=== PATIENT | female | born 1950 | race American Indian/Alaskan Native ===

== ENCOUNTER 2021-01-28 16:36 | Observation (INO) | payer MEDICARE ==
[2021-01-28] MEDS ORDERED: diazePAM 10 MG/2 ML SYRINGE IV ONE (17:40)
--- NOTE | 2021-01-28 17:56 | Emergency Department Report ---
HPI - General Chief Complaint: Pain General Time Seen by Provider: 01/28/21 17:10 - HPI HPI: 70-year-old female with history of dementia and recent percutaneous cholecystostomy tube placement is brought in by EMS complaining of severe right- sided neck pain for the past 4 days. She describes the pain as sharp and intermittent in nature. When the pain occurs it is a severe spasm of the muscles of the right side of her neck. Other than this pain she has had no other associated symptoms she denies headache, vision change, chest pain, shortness of breath abdominal pain, nausea/vomiting, focal weakness, sensory changes, or any other complaints ED Past Medical Hx - Past Medical History Previous Medical History?: Yes Additional medical history: Dementia - Surgical History Additional Surgical History: indwelling PERC ADRIENNE - Social History Smoking Status: Unknown if ever smoked ED Review of Systems ROS: Stated complaint: BODY PAIN Other details as noted in HPI Constitutional: denies: chills, fever Eyes: denies: eye pain, vision change ENT: denies: throat pain, congestion Respiratory: denies: cough, shortness of breath Cardiovascular: denies: chest pain, palpitations Gastrointestinal: denies: abdominal pain, nausea, vomiting Genitourinary: denies: dysuria, frequency Musculoskeletal: denies: back pain, myalgia Skin: denies: rash, lesions Neurological: denies: headache, weakness, numbness Hematological/Lymphatic: denies: easy bleeding Physical Exam - Physical Exam Vital Signs: Vital Signs 01/28/21 01/28/21 16:43 17:15 Temperature 97.3 F L Pulse Rate 89 Respiratory 16 Rate Blood Pressure 169/88 [Left] O2 Sat by Pulse 97 98 Oximetry Physical Exam: GENERAL: Well developed and well nourished. In mild distress secondary to pain HEAD: Normocephalic. No obvious signs of trauma. ENT: Moist mucous membranes. EYES: Extraocular movements are intact. Pupils are equal round and reactive to light bilaterally NECK: Supple. Full ROM is intact. Trachea is midline. There are palpable spasms of the right paraspinous muscles of the cervical spine and neck region without midline tenderness. LUNGS: Nonlabored breathing. Equal chest rise bilaterally. Clear to auscultation bilaterally. CARDIOVASCULAR: Regular rate and rhythm. No murmurs or rubs. VASCULAR: Cap refill < 2 seconds ABDOMEN: Abdomen is soft and nondistended. There is an indwelling PERC Mavis tube draining faint yellow-colored fluid. There is no significant tenderness, guarding or rebound. SKIN: Skin is warm and dry NEURO: Patient is awake and alert. restaurant bartender II-XII grossly intact. No focal deficits. Normal motor and sensory exam throughout. Normal speech. MUSCULOSKELETAL: No obvious deformities. No significant tenderness. Normal ROM throughout. BACK/SPINE: No midline tenderness or step-offs of the C/T/L spine. No costovertebral angle tenderness. ED Course Vital Signs 01/28/21 01/28/21 16:43 17:15 Temperature 97.3 F L Pulse Rate 89 Respiratory 16 Rate Blood Pressure 169/88 [Left] O2 Sat by Pulse 97 98 Oximetry ED Medical Decision Making - Lab Data Result diagrams: 01/29/21 03:59 01/29/21 03:59 Labs 01/28/21 01/28/21 18:00 18:00 WBC 7.1 RBC 4.09 Hgb 12.3 Hct 38.3 MCV 94 MCH 30 MCHC 32 RDW 15.7 H Plt Count 253 Lymph % (Auto) 13.4 Love % (Auto) 10.0 H Eos % (Auto) 0.4 Baso % (Auto) 2.8 H Lymph # (Auto) 0.9 L Love # (Auto) 0.7 Eos # (Auto) 0.0 Baso # (Auto) 0.2 H Seg Neutrophils % 73.4 H Seg Neutrophils # 5.2 Sodium 140 Potassium 3.6 Chloride 100.3 Carbon Dioxide 28 Anion Gap 15 BUN 15 Creatinine 0.8 Estimated GFR > 60 BUN/Creatinine Ratio 19 Glucose 143 H Calcium 9.7 Magnesium 1.80 Total Bilirubin 0.30 Direct Bilirubin < 0.2 Indirect Bilirubin 0.1 AST 18 ALT 11 Alkaline Phosphatase 125 Total Protein 8.8 H Albumin 4.7 Albumin/Globulin Ratio 1.1 Lipase 11 L - EKG Data -: EKG Interpreted by Me - Medical Decision Making 70-year-old female with history of dementia and indwelling PERC Adrienne tube presents complaining of 4 days of neck pain. She is afebrile and with normal vital signs other than elevated blood pressure. The patient is in mild distress secondary to pain. She has visible and palpable spasming of the paraspinous muscles of the cervical region and neck. She has no midline tenderness. She has a nonfocal neurologic exam. Given the patient's age, we will perform broad work-up with full set of labs and CT of the cervical spine to assess for evidence of fracture, dislocation, or other abnormalities to explain the p atient's symptoms. We will give 0.5 mg of Valium and reassess. On reassessment, patient remains with excruciating pain. We will give an additional 1 mg of Valium and reassess again. Patient again remains with severe pain, saying that spasming is only minimally improved. We will give dose of morphine and reassess. After morphine, the patient is more somnolent but still says she has significant pain, although it is less than before. Labs have resulted and reveal no significant leukocytosis or anemia. Creatinine is within normal range and there are no significant electrolyte abnormalities. CT of the neck reveals multilevel degenerative changes with foraminal stenoses but no acute abnormalities. Given that the patient lives alone and has intractable pain despite multiple doses of IV muscle relaxants and pain relievers, will plan to admit the patient to medicine for further management. I spoke with Dr. Persaud the on-call hospitalist regarding the case accepts the patient for admission and will assume care. Critical care attestation.: If time is entered above; I have spent that time in minutes in the direct care of this critically ill patient, excluding procedure time. ED Disposition Clinical Impression: Intractable pain, Neck muscle spasm Disposition: ADMITTED INPATIENT Is pt being admited?: Yes
[2021-01-28 18:22] LABS: Basophils # (Auto) 0.2 K/mm3 (0.0-0.1); Basophils % (Auto) 2.8 % (0.0-1.8); Eosinophils % (Auto) 0.4 % (0.0-4.3); Hematocrit 38.3 % (30.3-42.9); Hemoglobin 12.3 gm/dl (10.1-14.3); Lymphocytes # (Auto) 0.9 K/mm3 (1.2-5.4); Lymphocytes % (Auto) 13.4 % (13.4-35.0); Mean Corpuscular HGB Conc 32 % (30-34); Mean Corpuscular Volume 94 fl (79-97); Monocytes # (Auto) 0.7 K/mm3 (0.0-0.8); Platelet Count 253 K/mm3 (140-440); Red Blood Count 4.09 M/mm3 (3.65-5.03); Red Cell Distribution Width 15.7 % (13.2-15.2)
[2021-01-28 18:45] LABS: Alanine Aminotransferase 11 units/L (7-56); Albumin 4.7 g/dL (3.9-5); BUN/Creatinine Ratio 19; Blood Urea Nitrogen 15 mg/dL (7-17); Calcium 9.7 mg/dL (8.4-10.2); Hemolysis Index 4
[2021-01-28 18:46] LABS: Bilirubin,Direct < 0.2 mg/dL (0-0.2)
--- NOTE | 2021-01-28 19:34 | Cat Scan Report ---
Exam: CT cervical spine History: neck pain w/ spasm; Technique: Contiguous thin cut axial images obtained through the cervical spine. Sagittal and hodges l reconstructions performed by the technologist. All CT scans at this location are performed using CT dose reduction for ALARA by means of automated exposure control. Findings: No priors. There is no evidence of fracture or traumatic subluxation. Vertebral bodies are normal in height and alignment. Intervertebral disc spaces: C2-C3: Normal C3-C4: Disc height loss; disc osteophyte complex; moderate foraminal stenoses C4-C5: Left subarticular zone disc protrusion; mild right foraminal stenoses C5-C6: Disc height loss; disc osteophyte complex; neuroforamina are normal C6-C7: Bony spur; neuroforamina are normal Prevertebral space is normal; epiglottis is normal; faucial tonsils normal Surrounding soft tissues are grossly normal. Impression: Multilevel foraminal improvement in the cervical spine Signer Name: Ivis Mcnamara MD Signed: 01/28/2021 7:29 PM Workstation Name: [id number]
[2021-01-28] MEDS ORDERED: MORPHINE 2 MG/1 ML INJ IV ONE (20:11)
[2021-01-28] MEDS ORDERED: MORPHINE 2 MG/1 ML INJ IV PRN (22:00)
[2021-01-28] MEDS ORDERED: MAGNESIUM HYDROXIDE (MOM) ORAL LIQD UDC PO PRN (22:00)
[2021-01-28] MEDS ORDERED: ACETAMINOPHEN 325 MG TAB PO PRN (22:00)
[2021-01-28] MEDS ORDERED: ONDANSETRON 4 MG/2 ML INJ IV PRN (22:00)
[2021-01-28] MEDS ORDERED: MORPHINE 4 MG/1 ML INJ IV PRN (22:00)
--- NOTE | 2021-01-28 22:13 | History and Physical Report ---
History of Present Illness Date of examination: 01/28/21 Date of admission: 01/28/2021 Chief complaint: Neck Pain History of present illness: 70-year-old female with known history of dementia and recent percutaneous cholecystectomy tube placement brought into the emergency room today by EMS for evaluation of neck pain which has been ongoing for about 4 days. Patient states the pain is sharp and intermittent with associated muscle spasm. She denies any fever or chills, no headache or dizziness and no diaphoresis. Patient denies any nausea vomiting and no abdominal pain. She denies any sick contacts and no recent travel. Denies any contact with anyone with COVID-19. Patient denies any trauma to her neck and denies any fall. She lives at home alone but her son checks on her almost on a daily basis. Work-up in the emergency room today, CT scan of the cervical spine was significant for degenerative disease. Labs were unremarkable. She was placed on analgesic medication in the emergency room with some relief. Past History Past Medical History: other (Dementia) Past Surgical History: Other ( indwelling PERC ADRIENNE) Social history: no significant social history Family history: no significant family history Medications and Allergies Allergies Allergy/AdvReac Type Severity Reaction Status Date / Time No Known Allergies Allergy Verified 01/28/21 16:43 Active Meds: Active Medications Acetaminophen (Acetaminophen 325 Mg Tab) 650 mg PO Q4H PRN PRN Reason: Pain MILD(1-3)/Fever >100.5/YOUNG Heparin Sodium (Porcine) (Heparin 5,000 Unit/1 Ml Vial) 5,000 unit SUB-Q Q8HR ARYA Magnesium Hydroxide (Magnesium Hydroxide (Mom) Oral Liqd Udc) 30 ml PO Q4H PRN PRN Reason: Constipation Morphine Sulfate (Morphine 2 Mg/1 Ml Inj) 2 mg IV Q4H PRN PRN Reason: Pain, Moderate (4-6) Morphine Sulfate (Morphine 4 Mg/1 Ml Inj) 4 mg IV Q4H PRN PRN Reason: Pain , Severe (7-10) Ondansetron HCl (Ondansetron 4 Mg/2 Ml Inj) 4 mg IV Q8H PRN PRN Reason: Nausea And Vomiting Sodium Chloride (Sodium Chloride 0.9% 10 Ml Flush Syringe) 10 ml IV BID ARYA Sodium Chloride (Sodium Chloride 0.9% 10 Ml Flush Syringe) 10 ml IV PRN PRN PRN Reason: LINE FLUSH Review of Systems Constitutional: no fever, no chills Ears, nose, mouth and throat: no nasal congestion, no sore throat Cardiovascular: no chest pain, no palpitations Respiratory: no cough, no shortness of breath Gastrointestinal: no abdominal pain, no nausea, no vomiting, no diarrhea Genitourinary Female: no pelvic pain, no flank pain, no dysuria, no hematuria Musculoskeletal: neck pain, muscle cramps (In neck.), no low back pain Integumentary: no rash, no pruritis Neurological: no headaches, no confusion Psychiatric: no anxiety, no depression Endocrine: no polyphagia, no polydipsia, no polyuria, no nocturia Exam - Constitutional Vitals: Temp Pulse Resp BP Pulse Ox 98.0 F 107 H 18 179/91 95 01/28/21 19:50 01/28/21 19:50 01/28/21 20:24 01/28/21 19:50 01/28/21 19:50 General appearance: Present: no acute distress, well-nourished - EENT Eyes: Present: PERRL, EOM intact. Absent: scleral icterus Results - Labs CBC & Chem 7: 01/28/21 18:00 01/28/21 18:00 Labs: Abnormal lab results 01/28/21 01/28/21 Range/Units 18:00 18:00 RDW 15.7 H (13.2-15.2) % [place] % (Auto) 10.0 H (0.0-7.3) % Baso % (Auto) 2.8 H (0.0-1.8) % Lymph # (Auto) 0.9 L (1.2-5.4) K/mm3 Baso # (Auto) 0.2 H (0.0-0.1) K/mm3 Seg Neutrophils % 73.4 H (40.0-70.0) % Glucose 143 H (65-100) mg/dL Total Protein 8.8 H (6.3-8.2) g/dL Lipase 11 L (13-60) units/L Assessment and Plan - Patient Problems (1) Intractable pain Current Visit: Yes Status: Acute Plan to address problem: Patient has been having intractable neck pain. She is admitted and placed on analgesic medication as needed. Will anticipate discharge in the a.m. (2) Neck muscle spasm Current Visit: Yes Status: Acute Plan to address problem: We will consider placing patient on medication for muscle spasm if no improvement. (3) DVT prophylaxis Current Visit: Yes Status: Acute Plan to address problem: Patient placed on subcutaneous heparin. (4) Full code status Current Visit: Yes Status: Acute Plan to address problem: Patient is a full code.
[2021-01-29 04:42] LABS: Basophils % (Auto) 0.8 % (0.0-1.8); Eosinophils # (Auto) 0.1 K/mm3 (0.0-0.4); Eosinophils % (Auto) 2.2 % (0.0-4.3); Hematocrit 35.7 % (30.3-42.9); Hemoglobin 11.2 gm/dl (10.1-14.3); Lymphocytes # (Auto) 1.5 K/mm3 (1.2-5.4); Lymphocytes % (Auto) 25.5 % (13.4-35.0); Mean Corpuscular HGB Conc 31 % (30-34); Mean Corpuscular Volume 95 fl (79-97); Monocytes # (Auto) 0.8 K/mm3 (0.0-0.8); Monocytes % (Auto) 14.3 % (0.0-7.3); Platelet Count 243 K/mm3 (140-440); Red Blood Count 3.78 M/mm3 (3.65-5.03)
[2021-01-29] MEDS: HEPARIN 5,000 UNIT/1 ML VIAL SUB-Q SCH ×2 (06:13→18:26)
[2021-01-29 06:23] LABS: BUN/Creatinine Ratio 20; Blood Urea Nitrogen 16 mg/dL (7-17); Calcium 9.3 mg/dL (8.4-10.2); Hemolysis Index 15
[2021-01-29] MEDS ORDERED: ROCURONIUM 50 MG/5 ML INJ IV ONE (06:39)
[2021-01-29] MEDS ORDERED: KETAMINE 500 MG/5 ML VIAL MDV ONE (06:39)
[2021-01-29] MEDS ORDERED: KETOROLAC 10 MG TAB PO PRN (08:53)
[2021-01-29] MEDS ORDERED: KETOROLAC 30 MG/1 ML INJ IV PRN (08:53)
[2021-01-29] MEDS ORDERED: CYCLOBENZAPRINE 10 MG TAB PO PRN (08:54)
--- NOTE | 2021-01-29 09:00 | Progress Note ---
Assessment and Plan Assessment and plan: -- Intractable musculoskeletal pain Current Visit: Yes Status: Acute Plan to address problem: Patient has been having intractable neck pain. Reduce morphine dosage, add Toradol IV as needed Schedule p.o. Toradol --Neck muscle spasm Current Visit: Yes Status: Acute Add muscle relaxer, supportive care Flexeril 5 mg 3 times a day as needed for muscle spasms CT cervical spine multilevel foraminal improvement in cervical spine No evidence of fracture or traumatic subluxation vertebral bodies are normal in height and alignment surrounding soft tissue grossly normal -- DVT prophylaxis Current Visit: Yes Status: Acute Plan to address problem: Patient placed on subcutaneous heparin. --Full code status Current Visit: Yes Status: Acute Plan to address problem: Patient is a full code. We will closely monitor the patient and adjust the management as needed Patient is medically stable for discharge We will check with case management to assist with DC planning Possible home health and home PT Dwight of care reviewed with the patient and her nurse Will try to reach out to the family History Interval history: I have seen and examined the patient in ER awaiting for bed assignment Patient complains of severe neck pain and muscle spasms Relieved with pain medications Hospitalist Physical - Constitutional Vitals: Temp Pulse Resp BP Pulse Ox 98.0 F 84 14 137/80 94 01/28/21 19:50 01/29/21 04:46 01/29/21 03:00 01/29/21 04:46 01/29/21 04:46 General appearance: Present: mild distress, well-nourished - EENT Eyes: Present: PERRL, EOM intact - Neck Neck: Present: supple, normal ROM - Respiratory Respiratory effort: normal Respiratory: bilateral: diminished, negative: rales, rhonchi, wheezing - Cardiovascular Rhythm: regular Heart Sounds: Present: S1 & S2 - Extremities Extremities: no ischemia, No edema - Abdominal General gastrointestinal: soft, non-tender, non-distended, normal bowel sounds - Integumentary Integumentary: Present: clear, warm - Psychiatric Psychiatric: appropriate mood/affect, cooperative - Neurologic Neurologic: moves all extremities Results - Labs CBC & Chem 7: 01/29/21 03:59 01/29/21 03:59 Labs: Laboratory Last Values WBC 5.9 K/mm3 (4.5-11.0) 01/29/21 03:59 RBC 3.78 M/mm3 (3.65-5.03) 01/29/21 03:59 Hgb 11.2 gm/dl (10.1-14.3) 01/29/21 03:59 Hct 35.7 % (30.3-42.9) 01/29/21 03:59 MCV 95 fl (79-97) 01/29/21 03:59 MCH 30 pg (28-32) 01/29/21 03:59 MCHC 31 % (30-34) 01/29/21 03:59 RDW 16.0 % (13.2-15.2) H 01/29/21 03:59 Plt Count 243 K/mm3 (140-440) 01/29/21 03:59 Lymph % (Auto) 25.5 % (13.4-35.0) 01/29/21 03:59 [place] % (Auto) 14.3 % (0.0-7.3) H 01/29/21 03:59 Eos % (Auto) 2.2 % (0.0-4.3) 01/29/21 03:59 Baso % (Auto) 0.8 % (0.0-1.8) 01/29/21 03:59 Lymph # (Auto) 1.5 K/mm3 (1.2-5.4) 01/29/21 03:59 [place] # (Auto) 0.8 K/mm3 (0.0-0.8) 01/29/21 03:59 Eos # (Auto) 0.1 K/mm3 (0.0-0.4) 01/29/21 03:59 Baso # (Auto) 0.0 K/mm3 (0.0-0.1) 01/29/21 03:59 Seg Neutrophils % 57.2 % (40.0-70.0) 01/29/21 03:59 Seg Neutrophils # 3.4 K/mm3 (1.8-7.7) 01/29/21 03:59 Sodium 140 mmol/L (137-145) 01/29/21 03:59 Potassium 3.7 mmol/L (3.6-5.0) 01/29/21 03:59 Chloride 100.5 mmol/L (98-107) 01/29/21 03:59 Carbon Dioxide 28 mmol/L (22-30) 01/29/21 03:59 Anion Gap 15 mmol/L 01/29/21 03:59 BUN 16 mg/dL (7-17) 01/29/21 03:59 Creatinine 0.8 mg/dL (0.6-1.2) 01/29/21 03:59 Estimated GFR > 60 ml/min 01/29/21 03:59 BUN/Creatinine Ratio 20 % 01/29/21 03:59 Glucose 141 mg/dL (65-100) H 01/29/21 03:59 Calcium 9.3 mg/dL (8.4-10.2) 01/29/21 03:59 Magnesium 1.80 mg/dL (1.7-2.3) 01/28/21 18:00 Total Bilirubin 0.30 mg/dL (0.1-1.2) 01/28/21 18:00 Direct Bilirubin < 0.2 mg/dL (0-0.2) 01/28/21 18:00 Indirect Bilirubin 0.1 mg/dL 01/28/21 18:00 AST 18 units/L (5-40) 01/28/21 18:00 ALT 11 units/L (7-56) 01/28/21 18:00 Alkaline Phosphatase 125 units/L (35-129) 01/28/21 18:00 Total Protein 8.8 g/dL (6.3-8.2) H 01/28/21 18:00 Albumin 4.7 g/dL (3.9-5) 01/28/21 18:00 Albumin/Globulin Ratio 1.1 % 01/28/21 18:00 Lipase 11 units/L (13-60) L 01/28/21 18:00 Active Medications - Current Medications Current Medications: Generic Name Dose Route Start Last Admin Trade Name Freq PRN Reason Stop Dose Admin Acetaminophen 650 mg 01/28/21 22:00 Acetaminophen 325 Mg Tab PO Q4H PRN Pain MILD(1-3)/Fever >100.5/YOUNG Cyclobenzaprine HCl 5 mg 01/29/21 08:54 Cyclobenzaprine 10 Mg Tab PO Q8H PRN Muscle Spasm Heparin Sodium (Porcine) 5,000 unit 01/29/21 06:00 01/29/21 06:13 Heparin 5,000 Unit/1 Ml Vial SUB-Q 5,000 unit Q8HR ARYA Administration Ketorolac Tromethamine 15 mg 01/29/21 08:53 Ketorolac 30 Mg/1 Ml Inj IV 02/03/21 08:52 Q6H PRN Pain, Mild (1-3) Ketorolac Tromethamine 10 mg 01/29/21 08:53 Ketorolac 10 Mg Tab PO 02/03/21 08:52 Q4H PRN Pain, Mild (1-3) Magnesium Hydroxide 30 ml 01/28/21 22:00 Magnesium Hydroxide (Mom) Oral Liqd Udc PO Q4H PRN Constipation Morphine Sulfate 2 mg 01/28/21 22:00 Morphine 2 Mg/1 Ml Inj IV Q4H PRN Pain, Moderate (4-6) Ondansetron HCl 4 mg 01/28/21 22:00 Ondansetron 4 Mg/2 Ml Inj IV Q8H PRN Nausea And Vomiting Sodium Chloride 10 ml 01/28/21 22:00 01/28/21 22:10 Sodium Chloride 0.9% 10 Ml Flush Syringe IV 10 ml BID ARYA Administration Sodium Chloride 10 ml 01/28/21 22:00 Sodium Chloride 0.9% 10 Ml Flush Syringe IV PRN PRN LINE FLUSH
[2021-01-29] MEDS ORDERED: hydrALAZINE 20 MG/1 ML INJ IV ONE (11:03)
[2021-01-29] MEDS ORDERED: ALPRAZolam 0.5 MG TAB PO ONE (11:32)
--- NOTE | 2021-01-29 11:40 | Discharge Summary ---
Providers - Providers Date of Admission: 01/28/21 22:00 Date of discharge: 01/29/21 Attending physician: MONROE ARORA 01/29/21 09:31 Consult to Case Management [CONS] Stat Services Needed at Discharge: Other Notified:: MD Arora Primary care physician: JUDICIAL ADMINISTRATIVE ASSISTANT Hospitalization Pertinent studies: CT cervical spine multilevel foraminal improvement in cervical spine No evidence of fracture or traumatic subluxation vertebral bodies are normal in height and alignment surrounding soft tissue grossly normal Hospital course: -- Intractable musculoskeletal pain Current Visit: Yes Status: Acute Plan to address problem: Patient has been having intractable neck pain. Reduce morphine dosage, add Toradol IV as needed Schedule p.o. Toradol --Neck muscle spasm Current Visit: Yes Status: Acute Add muscle relaxer, supportive care Flexeril 5 mg 3 times a day as needed for muscle spasms CT cervical spine multilevel foraminal improvement in cervical spine No evidence of fracture or traumatic subluxation vertebral bodies are normal in height and alignment surrounding soft tissue grossly normal -- DVT prophylaxis Current Visit: Yes Status: Acute Plan to address problem: Patient placed on subcutaneous heparin. --Full code status Current Visit: Yes Status: Acute Plan to address problem: Patient is a full code. We will closely monitor the patient and adjust the management as needed Patient is medically stable for discharge We will check with case management to assist with DC planning Possible home health and home PT Dwight of care reviewed with the patient and her nurse Will try to reach out to the family Disposition: 06 HOME HEALTH CARE SERVICE Core Measure Documentation - Palliative Care Palliative Care/ Comfort Measures: Not Applicable - Core Measures Any of the following diagnoses?: none Exam - Constitutional Vitals: Temp Pulse Resp BP Pulse Ox 98.0 F 106 H 12 207/103 93 01/28/21 19:50 01/29/21 11:04 01/29/21 10:30 01/29/21 11:04 01/29/21 08:30 General appearance: Present: no acute distress, well-nourished - EENT Eyes: Present: PERRL, EOM intact - Neck Neck: Present: supple, normal ROM - Respiratory Respiratory effort: normal - Cardiovascular Rhythm: regular - Extremities Extremities: no ischemia, No edema - Abdominal General gastrointestinal: Present: soft, non-tender, non-distended, normal bowel sounds - Integumentary Integumentary: Present: clear, warm - Musculoskeletal Musculoskeletal: strength equal bilaterally, generalized weakness - Psychiatric Psychiatric: appropriate mood/affect, cooperative - Neurologic Neurologic: moves all extremities Plan Activity: advance as tolerated, fall precautions Diet: regular Additional Instructions: Advised to continue home blood pressure medications Norvasc and lisinopril as before. fall precautions. Home health, home health physical therapy. If you have worsening symptoms contact MD or go to emergency room as needed. If no improvement he may need to see private orthopedic surgeon/neurosurgeon, for further evaluation and management Follow up with: PRIMARY CARE,MD [Primary Care Provider] - 7 Days Prescriptions: Cyclobenzaprine [Flexeril 10 MG TAB] 5 mg PO Q8H PRN #30 tablet PRN Reason: Muscle Spasm oxyCODONE /ACETAMINOPHEN [Percocet 5/325] 1 tab PO QHS PRN #7 tablet PRN Reason: Pain , Severe (7-10) Ketorolac [Toradol] 10 mg PO Q4H PRN #20 tablet PRN Reason: Pain, Mild (1-3)
[2021-01-29] MEDS ORDERED: hydrALAZINE 10 MG TAB PO SCH (14:00)
[2021-01-29 14:08] VITALS: BP 107/60
--- NOTE | 2021-01-31 14:19 | Electrocardiograph Report ---
[facility] Test Date: 2021-01-28 Test Time: 20:28:08 Pat Name: DAVI FONG Department: Room: A362 Gender: F Hospital Wellness Coordinator: MAX : 1950 Requested By: DOROTHEA LEDBETTER Order Number: [id number] Reading MD: Jn Larsen Measurements Intervals [place] Rate: 96 P: 42 SD: 164 QRS: 43 QRSD: 93 T: -16 QT: 397 QTc: 498 Interpretive Statements Sinus rhythm Atrial premature complexes No previous ECG available for comparison Electronically Signed On 01-31-2021 14:19:12 EST by Jn Larsen
== END 2021-01-29 15:25 | disposition home health service (06) ==
LOC: ED 16:36 → 3A 22:00
PROVIDERS: ADMIT Internal Medicine Geriatric Medicine; ATTEND Internal Medicine
DX: M54.2 Cervicalgia (principal); F03.90 Unspecified dementia, unspecified severity, without behavioral disturbance, psychotic disturbance, mood disturbance, and anxiety; Z79.899 Other long term (current) drug therapy; Z98.890 Other specified postprocedural states
CPT/HCPCS: 36415; 70490; 80048; 80076; 82330; 83690; 83735; 85025; 93005; 96372; 96374; 96375; 96376; 99285; G0378; J0360; J1644; J2270; J3360; J3490